=== PATIENT | male | born 1995 ===

== ENCOUNTER 2025-01-19 09:19 | Emergency (ER) | payer SELFPAY ==
[2025-01-19] MEDS ORDERED: cefTRIAXone (ROCEPHIN) 500 MG VIAL ONE (09:54)
[2025-01-19 10:16] LABS: Bacteria/HPF None Seen HPF (None Seen); CAUTI Indications for Culture Dysuria,urgency,freq; Glucose, Urine (Dipstick) Normal (Negative); Leukocyte Negative Leu/uL (Negative); Protein, Urine (Dipstick) 30 mg/dL (Neg-Trace); RBC/HPF 0-3 HPF (0-3); Specific Gravity, Urine 1.048 (1.002-1.036)
[2025-01-19 10:27] LABS: Urine Culture Reflex No No
[2025-01-19 14:31] LABS: Chlam.trachomatis by PCR,Urine Not Detected (NotDetected); GC N.gonorrhoeae PCR,UrineVOID Not Detected (NotDetected)
== END 2025-01-19 09:59 | disposition home or self-care (01) ==
LOC: ERS 09:19
DX: R30.0 Dysuria (principal); Z20.2 Contact with and (suspected) exposure to infections with a predominantly sexual mode of transmission
CPT/HCPCS: 81001; 87491; 87591; 99283; J0696